=== PATIENT | male | born 1960 | race Two or more races ===

== ENCOUNTER 2017-08-18 12:08 | Emergency (ER) | payer SELFPAY ==
[~2017-08-18] VITALS: Ht 162.6 cm; Wt 68.0 kg
[~2017-08-18 12:08] MED LIST: NKM; UNOBMED
[2017-08-18 12:45] VITALS: BP 120/80
[2017-08-18 13:01] LABS: BASOPHILS % (AUTO) 2.8 % (0.0-2.0); EOSINOPHILS % (AUTO) 1.1 % (0.0-3.0); LYMPHOCYTES % (AUTO) 48.7 % (20.0-45.0); MEAN CORPUSCULAR HEMOGLOBIN 25.2 PG (27.0-31.0); MEAN CORPUSCULAR HGB CONC 29.7 G/DL (32.0-36.0); MEAN CORPUSCULAR VOLUME 85 FL (80-99); MEAN PLATELET VOLUME 6.1 FL (6.5-10.1); MONOCYTES % (AUTO) 4.3 % (1.0-10.0); NEUTROPHILS % (AUTO) 43.1 % (45.0-75.0); PLATELET COUNT 310 K/UL (150-450); RED BLOOD COUNT 4.06 M/UL (4.70-6.10); WHITE BLOOD COUNT 4.6 K/UL (4.8-10.8)
[2017-08-18 13:18] LABS: ACETAMINOPHEN < 10 ug/mL (10-30); ALANINE AMINOTRANSFERASE 12 U/L (3-41); ALBUMIN/GLOBULIN RATIO 0.7 (1.0-2.7); ALCOHOL 355 mg/dL; ANION GAP 20 (5-15); ASPARTATE AMINO TRANSFERASE 30 U/L (5-40); CALCIUM 8.4 mg/dL (8.6-10.2); CARBON DIOXIDE 26 mEQ/L (20-30); CHLORIDE 99 mEQ/L (98-107); CREATININE 0.7 mg/dL (0.7-1.2); GLOMERULAR FILTRATION RATE > 60 mL/min (>60); HEMOLYSIS 0; POTASSIUM 3.7 mEQ/L (3.4-4.9); SODIUM 145 mEQ/L (135-145); TOTAL PROTEIN 9.3 g/dL (6.6-8.7)
--- NOTE | 2017-08-18 13:42 | Emergency Room Report ---
History of Present Illness General Chief Complaint: Alcohol Intoxication Source: Patient (Varsha Bernstein) Present Illness HPI 56 YO Male presents to the ED intoxicated with alcohol, pt. is NAD, pt. is alert , no obvious signs of trauma. Pt reports right wrist pain stating he fell on outstretched hand. denies forearm or hand pain. Pt. HPI and ROS is limited due to pt. cooperation, and being a poor historian due to intoxication. (Varsha Bernstein) Allergies: Coded Allergies: No Known Allergies (Unverified , 12/23/14) UNABLE TO ASSESS (Unverified , 12/23/14) Patient History Past Medical History: see triage record Past Surgical History: none Pertinent Family History: unable to obtain Social History: Reports: alcohol use Reviewed Nursing Documentation: PMH: Agreed, PSxH: Agreed (Varsha Bernstein) Nursing Documentation-PMH Past Medical History Deferred: Pt Cognitively Impaired Past Medical History: Deferred (Varsha Bernstein) Review of Systems All Other Systems: limited - pt. poor historian (Varsha Bernstein) Physical Exam Vital Signs Date Time Temp Pulse Resp B/P (MAP) Pulse Ox O2 Delivery O2 Flow Rate FiO2 08/18/17 12:05 103 16 105/63 99 Room Air 08/18/17 12:45 98.0 Sp02 EP Interpretation: reviewed, normal General Appearance: no apparent distress, alert, GCS 15, non-toxic Head: normocephalic, atraumatic - old scabbed over left eyebrow abrasion, no evidence of infection, no tenderness, or swelling Eyes: bilateral eye normal inspection, bilateral eye PERRL ENT: hearing grossly normal, normal voice Neck: full range of motion, no bony tend, supple/symm/no masses Respiratory: chest non-tender, lungs clear, normal breath sounds, speaking full sentences Cardiovascular #1: regular rate, rhythm, no edema, normal capillary refill Gastrointestinal: normal bowel sounds, non tender, soft, no guarding, no rebound Rectal: deferred Genitourinary: normal inspection, no CVA tenderness Musculoskeletal: back normal, gait/station normal, normal range of motion, tender - TTP to the right wrist, no snuff box ttp, no obvious deformity or bruises. Neurologic: alert, responsive, motor strength/tone normal, sensory intact Skin: normal color, no rash, warm/dry, well hydrated (Varsha Bernstein) Medical Decision Making PA Attestation Dr. Tabares is my supervising Physician whom patient management has been discussed with. (Varsha Bernstein) Diagnostic Impression: Primary Impression: Acute alcoholic intoxication Qualified Codes: F10.929 - Alcohol use, unspecified with intoxication, unspecified Additional Impression: Fracture of ulnar styloid Qualified Codes: S52.614A - Nondisplaced fracture of right ulna styloid process, initial encounter for closed fracture ER Course Pt. presents to the ED intoxicated with alcohol, pt. is NAD, pt. is alert, no obvious signs of trauma. Pt reports right wrist pain stating he fell on outstretched hand. denies forearm or hand pain. Pt. reports he is thirsty and hungry. Ddx considered but are not limited to ETOH, Trauma, Syncope, dementia, OD Vital signs: are WNL, pt. is afebrile H&PE are most consistent with ETOH abuse. Possible right wrist musculoskeletal injury will evaluate with imaging , no snuff box TTP ORDERS: -CMP: electrolytes ok. -CBC: pancytopenia -Salicylates and Acetaminophen:WNL -serum ETOH: 355 -- X-ray Right Wrist 3 views - POSITIVE FOR: nondisplaced fracture of the ulnar styloid, negative for : Dislocation, or significant soft tissue injury, per preliminary read in ED by Dr. Tabares - interpretation is scribed by PA. ED INTERVENTIONS: - 1L NS -100mg Thiamine PO -Right Colles wrist Splint applied by compounding pharmacy technician. Pt. remains neurovascularly intact. -Observance while he detoxifies. -Pt is given sandwiches and water. Pt. was allowed to sleep/rest. PT. is awake and alert x 3 -Pt. has unsteady gait , slurred speech has improved significantly s/p above interventions. DISPOSITION: At this time pt. requires further observation in the ED until he exhibits clinical sobriety. Labs Test 08/18/17 12:20 White Blood Count 4.6 K/UL (4.8-10.8) Red Blood Count 4.06 M/UL (4.70-6.10) Hemoglobin 10.2 G/DL (14.2-18.0) Hematocrit 34.5 % (42.0-52.0) Mean Corpuscular Volume 85 FL (80-99) Mean Corpuscular Hemoglobin 25.2 PG (27.0-31.0) Mean Corpuscular Hemoglobin Concent 29.7 G/DL (32.0-36.0) Red Cell Distribution Width 22.0 % (11.6-14.8) Platelet Count 310 K/UL (150-450) Mean Platelet Volume 6.1 FL (6.5-10.1) Neutrophils (%) (Auto) 43.1 % (45.0-75.0) Lymphocytes (%) (Auto) 48.7 % (20.0-45.0) Monocytes (%) (Auto) 4.3 % (1.0-10.0) Eosinophils (%) (Auto) 1.1 % (0.0-3.0) Basophils (%) (Auto) 2.8 % (0.0-2.0) Sodium Level 145 mEQ/L (135-145) Potassium Level 3.7 mEQ/L (3.4-4.9) Chloride Level 99 mEQ/L (98-107) Carbon Dioxide Level 26 mEQ/L (20-30) Anion Gap 20 (5-15) Blood Urea Nitrogen 11 mg/dL (7-23) Creatinine 0.7 mg/dL (0.7-1.2) Estimat Glomerular Filtration Rate > 60 mL/min (>60) Glucose Level 114 mg/dL (74-106) Calcium Level 8.4 mg/dL (8.6-10.2) Total Bilirubin < 0.2 mg/dL (0.0-1.2) Aspartate Amino Transf (AST/SGOT) 30 U/L (5-40) Alanine Aminotransferase (ALT/SGPT) 12 U/L (3-41) Alkaline Phosphatase 100 U/L (40-129) Total Protein 9.3 g/dL (6.6-8.7) Albumin 4.1 g/dL (3.5-5.2) Globulin 5.2 g/dL Albumin/Globulin Ratio 0.7 (1.0-2.7) Salicylates Level < 1 mg/dL (10-30) Acetaminophen Level < 10 ug/mL (10-30) Serum Alcohol 355 mg/dL (Varsha Bernstein) ER Course Patient observed in the emergency room overnight, now more awake alert. clinically sober but now with slight tremors. [place] [address], drinks 4x/week. will give librium and ativan Signed out patient to Dr. Tabares 56 yo M w/ alcohol intoxication slept all night nad slight withdrawal sx given ativan/librium DC home ~1 hour (Thee Best M.D.) Last Vital Signs Date Time Temp Pulse Resp B/P (MAP) Pulse Ox O2 Delivery O2 Flow Rate FiO2 08/18/17 12:45 98.0 110 16 120/80 99 Room Air (Varsha Bernstein) Disposition: HOME, SELF-CARE Condition: Stable Signed Out To: Dr. Best (Varsha Bernstein) Scripts Ibuprofen* (MOTRIN*) 400 Mg Tablet 400 MG ORAL THREE TIMES A DAY, #20 TAB 0 Refills Prov: Varsha Bernstein 08/18/17 Referrals: NOT CHOSEN IPA/,REFERRING (PCP) Patient Instructions: Alcohol Intoxication, [id number], Alcohol Use Disorder , Ulnar Fracture Additional Instructions: Take medications as directed. Follow up with a [facility] or Primary care provider for referral in 3-5 days, even if your symptoms have resolved. --Please review list of primary care clinics, if you do not already have a primary care provider Return sooner to ED if new symptoms occur, or current symptoms become worse. Do not drink alcohol. review list of substance use resources. - Please note that this Emergency Department Report was dictated using [employer] specialist technology software, occasionally this can lead to erroneous entry secondary to interpretation by the dictation equipment. Varsha Bernstein Aug 18, 2017 13:42 Thee Best M.D. Aug 19, 2017 05:46
[2017-08-18] MEDS ORDERED: Thiamine 100mg tab ORAL ONE (14:30)
[2017-08-18] MEDS ORDERED: IBUPROFEN400 MG ORAL (16:19)
[2017-08-18 19:12] VITALS: BP 115/65
[2017-08-18 22:37] VITALS: BP 127/75
[2017-08-19 02:28] VITALS: BP 150/80
[2017-08-19 05:42] VITALS: BP 148/82
[2017-08-19] MEDS ORDERED: LORazepam 1mg tab ORAL ONE (06:15)
[2017-08-19] MEDS ORDERED: chlordiazePOXIDE 25mg Cap ORAL ONE (06:15)
[2017-08-19 08:08] VITALS: BP 126/94
--- NOTE | 2017-08-19 10:05 | Diagnostic Imaging Report ---
Indication: Right wrist pain Technique: XRAY WRIST MIN 3V RIGHT Comparison: None Findings: There is a subtle linear lucency of the ulnar styloid. Otherwise there is no radiographically evident fracture or dislocation. Bone mineralization is normal. Impression: Subtle linear lucency of the ulnar styloid. Possibility of nondisplaced fracture should be considered if there is pain in this area. Followup recommended.
[2017-08-19 13:00] VITALS: BP 127/93
[2017-08-19 13:21] VITALS: BP 126/94
== END 2017-08-19 13:26 | disposition home or self-care (01) ==
LOC: EDBD 12:08 → EMR 12:21
DX: F10.129 Alcohol abuse with intoxication, unspecified (principal); S52.614A Nondisplaced fracture of right ulna styloid process, initial encounter for closed fracture; W19.XXXA Unspecified fall, initial encounter; Y92.89 Other specified places as the place of occurrence of the external cause
CPT/HCPCS: 36415; 73110; 80053; 85025; 96361; 96374; 99284; G0480; 80329

== ENCOUNTER 2017-08-26 07:54 | Emergency (ER) | payer SELFPAY ==
[~2017-08-26] VITALS: Ht 172.7 cm; Wt 72.6 kg
[~2017-08-26 07:54] MED LIST changes: +IBUPROFEN400 MG ORAL
[2017-08-26 09:39] VITALS: BP 117/79
--- NOTE | 2017-08-26 10:09 | Emergency Room Report ---
History of Present Illness General Chief Complaint: Alcohol Intoxication Source: Patient Present Illness HPI Patient was brought in by paramedics Patient was found sitting on the sidewalk And they were summoned Here the patient denies any headache denies any chest pressures of breath Patient does report alcohol ingestion Denies any focal weakness Otherwise has no major complaints Allergies: Coded Allergies: No Known Allergies (Unverified , 12/23/14) UNABLE TO ASSESS (Unverified , 12/23/14) Patient History Past Medical History: see triage record Pertinent Family History: none Reviewed Nursing Documentation: PMH: Agreed, PSxH: Agreed Nursing Documentation-PMH Past Medical History: No History, Except For History Of Psychiatric Problem: Yes - etoh abuse Review of Systems All Other Systems: negative except mentioned in HPI Physical Exam Vital Signs Date Time Temp Pulse Resp B/P (MAP) Pulse Ox O2 Delivery O2 Flow Rate FiO2 08/26/17 07:46 97.9 109 18 129/90 98 Room Air Sp02 EP Interpretation: reviewed, normal General Appearance: well appearing Head: normocephalic, atraumatic Eyes: bilateral eye PERRL, bilateral eye EOMI ENT: normal pharynx Neck: full range of motion Respiratory: lungs clear Cardiovascular #1: regular rate, rhythm Gastrointestinal: non tender, soft Musculoskeletal: normal inspection Neurologic: alert, oriented x3 Skin: other - mildly disheveled Lymphatic: no adenopathy Medical Decision Making Diagnostic Impression: Primary Impression: ETOH ABUSE ER Course Patient had admitted to drinking alcohol earlier at this time was allowed to rest Patient remained asymptomatic no signs of any vomiting And after further observation was able to be dispositioned Last Vital Signs Date Time Temp Pulse Resp B/P (MAP) Pulse Ox O2 Delivery O2 Flow Rate FiO2 08/26/17 09:39 84 16 117/79 96 Room Air 08/26/17 07:46 97.9 Status: improved Disposition: HOME, SELF-CARE Condition: Improved Referrals: NOT CHOSEN IPA/MD,REFERRING (PCP) Additional Instructions: Patient is provided with the discharge instructions notified to follow up with primary doctor in the next 2-3 days otherwise return to the er with any worsening symptoms. Please note that this report is being documented using [employer] technology. This can lead to erroneous entry secondary to incorrect interpretation by the dictating instrument. FRANKIE WHITE D.O. Aug 26, 2017 10:09
[2017-08-26 12:00] VITALS: BP 111/77
[2017-08-26 15:00] VITALS: BP 123/80
[2017-08-26 15:33] VITALS: BP 118/65
== END 2017-08-26 15:37 | disposition home or self-care (01) ==
LOC: EDBD 07:54 → EMR 08:10
DX: F10.129 Alcohol abuse with intoxication, unspecified (principal)
CPT/HCPCS: 99284

== ENCOUNTER 2017-09-25 20:24 | Emergency (ER) | payer SELFPAY ==
[~2017-09-25] VITALS: Ht 170.2 cm; Wt 68.0 kg
[2017-09-25 20:40] VITALS: BP 122/78
--- NOTE | 2017-09-25 20:53 | Emergency Room Report ---
History of Present Illness General Chief Complaint: Alcohol Intoxication Source: Patient, EMS Present Illness HPI Patient was found lying down floor. Patient is unknown onset . He reports drinking heavily earlier in the day. He denies new injuries or pain. Patient was brought in by EMS Allergies: Coded Allergies: No Known Allergies (Unverified , 12/23/14) UNABLE TO ASSESS (Unverified , 12/23/14) Patient History Past Medical History: see triage record Reviewed Nursing Documentation: PMH: Agreed, PSxH: Agreed Review of Systems All Other Systems: limited - by poor historian Physical Exam Vital Signs Date Time Temp Pulse Resp B/P (MAP) Pulse Ox O2 Delivery O2 Flow Rate FiO2 09/25/17 20:19 97.0 104 16 118/78 99 Room Air Sp02 EP Interpretation: reviewed, normal General Appearance: normal inspection, well appearing, no apparent distress, alert Head: atraumatic ENT: normal ENT inspection, hearing grossly normal, normal voice Neck: normal inspection, full range of motion, supple, no bony tend Respiratory: normal inspection, lungs clear, normal breath sounds, no respiratory distress, no retraction, no wheezing Cardiovascular #1: regular rate, rhythm, no edema Gastrointestinal: normal inspection, normal bowel sounds, non tender, soft, no guarding, no hernia Genitourinary: no CVA tenderness Musculoskeletal: normal inspection, back normal, normal range of motion Neurologic: normal inspection, alert, responsive, speech normal, other - gait abnormality Psychiatric: normal inspection, judgement/insight normal, mood/affect normal Skin: normal inspection, normal color, no rash Medical Decision Making Diagnostic Impression: Primary Impression: Acute alcoholic intoxication ER Course Patient was noted to have initially confused mental status. Patient had gradual improvement of neurologic status. Patient was seen and examined by me in the emergency department. No life- threatening signs or symptoms were identified. Patient is stable for discharge from emergency Department. Patient was advised to stop drinking alcohol. And to followup with outpatient therapy for alcohol treatment.The patient was noted to have baseline unsteady gait and was given a walker Last Vital Signs Date Time Temp Pulse Resp B/P (MAP) Pulse Ox O2 Delivery O2 Flow Rate FiO2 09/25/17 20:19 97.0 104 16 118/78 99 Room Air Status: improved Disposition: HOME, SELF-CARE Condition: Stable Liu Tabares Sep 25, 2017 20:53
[2017-09-25 21:45] VITALS: BP 118/78
[2017-09-25 23:30] VITALS: BP 112/72
[2017-09-26 01:30] VITALS: BP 118/75
[2017-09-26 03:15] VITALS: BP 116/72
[2017-09-26 04:08] VITALS: BP 122/76
[2017-09-26 05:58] VITALS: BP 120/74
== END 2017-09-26 06:00 | disposition home or self-care (01) ==
LOC: EDBD 20:24 → EMR 21:01
DX: F10.129 Alcohol abuse with intoxication, unspecified (principal)
CPT/HCPCS: 99283

== ENCOUNTER 2017-10-21 12:58 | Emergency (ER) | payer SELFPAY ==
[~2017-10-21] VITALS: Ht 170.2 cm; Wt 68.0 kg
--- NOTE | 2017-10-21 13:03 | Emergency Room Report ---
History of Present Illness Present Illness HPI 56-year-old male presents to the emergency department brought by ambulance for altered mental status suspect a EtOH as the cause. Patient is well-known to the emergency department for EtOH intoxication. Patient is poorly cooperative and does not answer any questions therefore history of present illness and ROS are limited. Allergies: Coded Allergies: No Known Allergies (Unverified , 12/23/14) UNABLE TO ASSESS (Unverified , 12/23/14) Patient History Past Medical History: see triage record Past Surgical History: none Pertinent Family History: none Reviewed Nursing Documentation: PMH: Agreed, PSxH: Agreed Review of Systems All Other Systems: negative except mentioned in HPI Physical Exam Sp02 EP Interpretation: reviewed, normal General Appearance: no apparent distress, non-toxic, lethargic Eyes: bilateral eye normal inspection, bilateral eye PERRL ENT: normal pharynx, no angioedema, TMs + canals normal, moist mucus membranes Respiratory: chest non-tender, lungs clear, normal breath sounds, no respiratory distress, no wheezing Cardiovascular #1: regular rate, rhythm, no edema, normal capillary refill Gastrointestinal: soft Neurologic: responsive - to pain and loud verbal stimuli, DTRs symmetric Skin: normal color, no rash, warm/dry Medical Decision Making PA Attestation Dr. Brown is my supervising Physician whom patient management has been discussed with. Diagnostic Impression: Primary Impression: Acute alcoholic intoxication Qualified Codes: F10.929 - Alcohol use, unspecified with intoxication, unspecified ER Course 56-year-old male presents to the emergency department brought by ambulance for altered mental status suspect a EtOH as the cause. Patient is well-known to the emergency department for EtOH intoxication. Patient is poorly cooperative and does not answer any questions therefore history of present illness and ROS are limited. PT. is alert with spontaneous eye opening, lethargic in appearance, no obvious signs of trauma. does not provide verbal responses. Ddx considered but are not limited to ETOH, Trauma, Syncope, dementia, OD Vital signs: are WNL, pt. is afebrile H&PE are most consistent with ETOH abuse. ORDERS: -Accu Check: not resulted -CBC: anemia -CMP: electrolytes ok at this time, glucose 154 -Serum ETOH: 524 -CT Head No Contrast: Pt unable to tolerate became increasingly more alert and was not cooperating. ED INTERVENTIONS: -NS Bolus 1 Liter x 2 -Observance while he detoxifies. Pt. was allowed to sleep/rest. PT. demonstrated improved alertness and response after fluid administration, VS remain stable no evidence to suggest ETOH w/d or seizures. DISPOSITION: pt. requires continuation of observance until clinically sober. -signed out to Dr. Mederos. Labs Test 10/21/17 13:18 White Blood Count 7.0 K/UL (4.8-10.8) Red Blood Count 3.99 M/UL (4.70-6.10) Hemoglobin 11.1 G/DL (14.2-18.0) Hematocrit 35.4 % (42.0-52.0) Mean Corpuscular Volume 89 FL (80-99) Mean Corpuscular Hemoglobin 27.8 PG (27.0-31.0) Mean Corpuscular Hemoglobin Concent 31.3 G/DL (32.0-36.0) Red Cell Distribution Width 22.4 % (11.6-14.8) Platelet Count 232 K/UL (150-450) Mean Platelet Volume 6.5 FL (6.5-10.1) Neutrophils (%) (Auto) 64.2 % (45.0-75.0) Lymphocytes (%) (Auto) 30.2 % (20.0-45.0) Monocytes (%) (Auto) 4.0 % (1.0-10.0) Eosinophils (%) (Auto) 0.1 % (0.0-3.0) Basophils (%) (Auto) 1.5 % (0.0-2.0) Sodium Level 142 MMOL/L (136-145) Potassium Level 3.4 MMOL/L (3.5-5.1) Chloride Level 104 MMOL/L (98-107) Carbon Dioxide Level 23 MMOL/L (21-32) Anion Gap 15 mmol/L (5-15) Blood Urea Nitrogen 8 mg/dL (7-18) Creatinine 0.8 MG/DL (0.55-1.30) Estimat Glomerular Filtration Rate > 60 mL/min (>60) Glucose Level 143 MG/DL (74-106) Calcium Level 8.4 MG/DL (8.5-10.1) Total Bilirubin 0.2 MG/DL (0.2-1.0) Aspartate Amino Transf (AST/SGOT) 37 U/L (15-37) Alanine Aminotransferase (ALT/SGPT) 19 U/L (12-78) Alkaline Phosphatase 114 U/L (46-116) Total Protein 8.2 G/DL (6.4-8.2) Albumin 3.5 G/DL (3.4-5.0) Globulin 4.7 g/dL Albumin/Globulin Ratio 0.7 (1.0-2.7) Serum Alcohol 524 mg/dL Disposition: HOME, SELF-CARE Condition: Stable Signed Out To: Dr. Mederos Scripts Chlordiazepoxide (Chlordiazepoxide HCl) 25 Mg Capsule 25 MG ORAL THREE TIMES A DAY, #15 CAP 0 Refills Prov: THU MEDEROS M.D. 10/22/17 Patient Instructions: Alcohol Intoxication, [id number] Varsha Bernstein Oct 21, 2017 13:03
[2017-10-21 13:40] LABS: BASOPHILS % (AUTO) 1.5 % (0.0-2.0); EOSINOPHILS % (AUTO) 0.1 % (0.0-3.0); LYMPHOCYTES % (AUTO) 30.2 % (20.0-45.0); MEAN CORPUSCULAR HEMOGLOBIN 27.8 PG (27.0-31.0); MEAN CORPUSCULAR HGB CONC 31.3 G/DL (32.0-36.0); MEAN CORPUSCULAR VOLUME 89 FL (80-99); MEAN PLATELET VOLUME 6.5 FL (6.5-10.1); NEUTROPHILS % (AUTO) 64.2 % (45.0-75.0); PLATELET COUNT 232 K/UL (150-450); RED BLOOD COUNT 3.99 M/UL (4.70-6.10); RED CELL DISTRIBUTION WIDTH 22.4 % (11.6-14.8)
[2017-10-21 13:52] LABS: ANION GAP 15 mmol/L (5-15); CALCIUM 8.4 MG/DL (8.5-10.1); CARBON DIOXIDE 23 MMOL/L (21-32); CHLORIDE 104 MMOL/L (98-107); CREATININE 0.8 MG/DL (0.55-1.30); GLOMERULAR FILTRATION RATE > 60 mL/min (>60); POTASSIUM 3.4 MMOL/L (3.5-5.1); SODIUM 142 MMOL/L (136-145)
[2017-10-21 13:59] LABS: ALANINE AMINOTRANSFERASE 19 U/L (12-78); ALBUMIN/GLOBULIN RATIO 0.7 (1.0-2.7); ALCOHOL 524 mg/dL; ASPARTATE AMINO TRANSFERASE 37 U/L (15-37); TOTAL PROTEIN 8.2 G/DL (6.4-8.2)
[2017-10-21 14:35] VITALS: BP 106/71
[2017-10-21 15:45] VITALS: BP 109/65
[2017-10-21 19:00] VITALS: BP 114/69
[2017-10-21 21:00] VITALS: BP 110/71
[2017-10-21 23:00] VITALS: BP 109/65
[2017-10-22 01:00] VITALS: BP 100/63
[2017-10-22 03:00] VITALS: BP 122/67
[2017-10-22 05:24] VITALS: BP 110/66
[2017-10-22] MEDS ORDERED: LORazepam Inj 2mg/ml 1ml IM ONE ×2 (05:30→06:15)
[2017-10-22] MEDS ORDERED: LIBRIUM25 MG ORAL (06:16)
[2017-10-22 06:30] VITALS: BP 110/66
== END 2017-10-22 06:30 | disposition home or self-care (01) ==
LOC: EDUNIT# 12:58 → EDBD 12:58 → EMR 13:37
DX: F10.129 Alcohol abuse with intoxication, unspecified (principal); Y90.8 Blood alcohol level of 240 mg/100 ml or more
CPT/HCPCS: 36415; 80053; 85025; 96361; 96365; 96372; 99284; G0480; 80329